=== PATIENT | female | born 2000 | race Caucasian/White ===

== ENCOUNTER 2019-07-10 15:23 | Emergency (ER) | payer OTHER ==
[~2019-07-10] VITALS: Ht 160 cm; Wt 72.7 kg
[2019-07-10 15:57] VITALS: BP 129/77; TEMP 98.2
[2019-07-10] MEDS ORDERED: FLEXERIL 1010 MG/TAB PO (16:48)
[2019-07-10] MEDS ORDERED: NORCO 325 MG-51 TAB PO (16:48)
[2019-07-10 17:45] VITALS: PULSE 81
== END 2019-07-10 17:50 | disposition home or self-care (01) ==
LOC: COL.ER 15:23
DX: S16.1XXA Strain of muscle, fascia and tendon at neck level, initial encounter (principal); S39.012A Strain of muscle, fascia and tendon of lower back, initial encounter; G44.209 Tension-type headache, unspecified, not intractable; V49.9XXA Car occupant (driver) (passenger) injured in unspecified traffic accident, initial encounter
CPT/HCPCS: J1885